=== PATIENT | female | born 1965 | race Caucasian/White ===

== ENCOUNTER 2019-03-29 20:46 | Inpatient (IN) | payer MEDICAID ==
[~2019-03-29] VITALS: Ht 180.3 cm; Wt 94.8 kg
[2019-03-29 20:53] VITALS: BP_SYST 132
--- NOTE | 2019-03-29 20:59 | NUR ---
Placed in room 01 . Placed on night monitor, blood pressure machine and pulse oximeter. To gown for exam. Side rails up.
--- NOTE | 2019-03-29 21:00 | NUR ---
Pt brought in by daughter. Pt awake, alert, oriented x2. Pt mildly confused. Daughter states Last known well time was more than 6 hours ago. Daughter states that patient was laying on the floor, confused and lethargic, which prompted ED visit. Pt denies chest pain, nausea, vomiting, diarrhea, shortness of breath. 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 Pt placed in ED bed 1 with no acute signs of distress at this time. ED team bedside assisting in evaluation and care of patient. Vital signs stable.
--- NOTE | 2019-03-29 21:00 | NUR ---
ER Dr. Niño at bedside examining patient.
--- NOTE | 2019-03-29 21:05 | NUR ---
# 20 gauge angiocath placed to LAC. Use of asceptic technique. Opsite placed over site. Blood return noted. Blood for lab drawn from site. Flushed with 10 cc of normal saline. No evidence of infiltration noted. Patient tolerated well.
--- NOTE | 2019-03-29 21:10 | NUR ---
Pt to CT via stretcher on raymond mill operator accompanied by myself.
--- NOTE | 2019-03-29 21:18 | NUR ---
Pt returns from CT, placed on surveillance system monitor. Daughter at bedside, states their is improvent to her cognition and speech since onset of symptoms. Improvement noted in facial aysmmetry, pt speech more clear. No changes to neuromuscular activity.
[2019-03-29 21:50] LABS: BASOPHILS % (AUTO) 0.5 % (0.0-2.0); EOSINOPHILS # (AUTO) 0.2 K/uL (0.0-0.4); EOSINOPHILS % (AUTO) 2.5 % (0.0-4.0); HEMATOCRIT 35.4 % (36-48); HEMOGLOBIN 11.6 g/dL (12.0-16.0); LYMPHOCYTES # (AUTO) 1.7 K/uL (1.0-5.5); LYMPHOCYTES % (AUTO) 27.4 % (20.5-51.5); MEAN CORPUSCULAR HEMOGLOBIN 25 pg (27-31); MEAN CORPUSCULAR HGB CONC 33 % (32-36); MEAN CORPUSCULAR VOLUME 77 fL (79.0-98.0); MONOCYTES # (AUTO) 0.7 K/uL (0.0-1.0); MONOCYTES % (AUTO) 11.9 % (1.7-9.3); NEUTROPHILS # (AUTO) 3.5 K/uL (1.8-7.7); NEUTROPHILS % (AUTO) 57.7 % (40.0-70.0); PLATELET COUNT (AUTO) 362 K/uL (130-430); RED BLOOD CELL COUNT(AUTO) 4.61 MIL/uL (4.2-6.2); RED CELL DISTRIBUTION WIDTH 17.1 % (9.0-15.0); WHITE BLOOD COUNT (AUTO) 6.1 K/uL (4.8-10.8)
--- NOTE | 2019-03-29 22:03 | NUR ---
Pt resting in ED bed comfortably. Daughter bedside.
[2019-03-29 22:05] LABS: ANION GAP 4 (5-15); CALCIUM 8.7 mg/dL (8.4-11.0); CHLORIDE 101 mmol/L (98-107); CREATININE 0.69 mg/dL (0.55-1.30); GLUCOSE 100 mg/dL (70-99); POTASSIUM 3.9 mmol/L (3.5-5.1); SODIUM SERUM 136 mmol/L (136-145); UREA NITROGEN, BLOOD 7 mg/dL (8-21)
[2019-03-29 22:07] LABS: GFR AFRICAN AMERICAN 114 mL/min (>90)
[2019-03-29 22:13] LABS: PROTHROMBIN TIME 10.4 SECS (9.5-12.5)
[2019-03-29 22:22] LABS: ALANINE AMINOTRANSFERASE 19 U/L (12-78); ALBUMIN 3.5 g/dL (3.4-4.8); ASPARTATE AMINOTRANSFERASE 21 U/L (10-37); THYROID STIMULATING HORMONE 1.63 uIu/mL (0.36-3.74); TOTAL BILIRUBIN 0.2 mg/dL (0.0-1.0)
[2019-03-29 22:24] LABS: BILIRUBIN,URINE NEGATIVE (NEGATIVE); BLOOD, URINE NEGATIVE (NEGATIVE); CLARITY/URINE CLEAR (CLEAR); COLOR,URINE YELLOW (YELLOW); GLUCOSE,URINE NEGATIVE (NEGATIVE); KETONES,URINE NEGATIVE (NEGATIVE); LEUKOCYTE ESTERASE ,URINE NEGATIVE (NEGATIVE); NITRITE, URINE NEGATIVE (NEGATIVE); PROTEIN URINE NEGATIVE (NEGATIVE); UROBILINOGEN,URINE 0.2 (0.2-1.0)
[2019-03-29 22:35] LABS: ACETAMINOPHEN < 1 ug/mL (1-30); ALCOHOL, BLOOD < 3 mg/dL (<10)
[2019-03-29 22:46] LABS: BARBITURATE, URINE NEGATIVE (NEG <=200); BENZODIAZEPINE, URINE POSITIVE (NEG <=150); CANNABINOID, URINE NEGATIVE (NEG <=50); COCAINE, URINE NEGATIVE (NEG <=150); METHAMPHETAMINES SCREEN,URINE NEGATIVE (NEG <=500); OPIATE, URINE POSITIVE (NEG <=100); PHENCYCLIDINE SCREEN,URINE NEGATIVE (NEG <=25); UR TRICYCLIC ANTIDEPRESSANTS POSITIVE (NEG <=300); URINE AMPHETAMINE NEGATIVE (NEG <=500); URINE METHADONE NEGATIVE (NEG <=200); URINE OXYCODONE SCREEN NEGATIVE (NEG <=100); URINE PROPOXYPHENE SCREEN NEGATIVE (NEG <=300)
--- NOTE | 2019-03-29 23:10 | NUR ---
Pt soiled self. Pt assisted to be changed, bedsheets, gown changed. Pt cleaned and skin inspected with no significant findings
--- NOTE | 2019-03-30 00:12 | NUR ---
Pt resting in ED bed comfortably, no acute distress noted at this time.
--- NOTE | 2019-03-30 01:03 | NUR ---
Patient will be admitted to care of Dr. Hill. Admitted to telemetry unit. Will go to room 102A. Belongings list completed. Summary report printed. Report will be given at bedside.
[2019-03-30] MEDS: D5LR 1,000 ML IV SCH ×3 (01:07→21:39)
--- NOTE | 2019-03-30 01:11 | NUR ---
Transfer to telemetry via ACLS protocol. Licensed nurse present. IV's present no signs or symptoms of infiltration.
--- NOTE | 2019-03-30 01:45 | NUR ---
ADMISSION NOTE Received patient from ER via [facility], received report from XAVIER dietrich. Patient admitted with diagnosis of OVERDOSE. Patient oriented to hospital routine, call light, toileting and safety-patient verbalized understanding.
[2019-03-30 01:50] VITALS: BP_SYST 129
--- NOTE | 2019-03-30 02:05 | NUR ---
Patient admitted to room 102a. Alert Oriented x4. No acute distress noted. Skin warm dry and intact. Vital signs 96.9 120/80 99% 72. Weight 95.3
[2019-03-30] MEDS ORDERED: FLU VACC QS2019-20 36MOS UP/PF 60 MCG/0.5 ML SYRINGE I.M. PRN (02:30)
--- NOTE | 2019-03-30 03:13 | NUR ---
Consultation Paged Reason for Consultation: overdose Was consult called: Y Person who was notified: Monika Consulting Physician: Dr. Velásquez Tractor Operator Battery Ordering Physician: Dr. Hill
[2019-03-30 07:18] LABS: BASOPHILS # (AUTO) 0.1 K/uL (0.0-0.2); BASOPHILS % (AUTO) 1.7 % (0.0-2.0); EOSINOPHILS # (AUTO) 0.3 K/uL (0.0-0.4); EOSINOPHILS % (AUTO) 4.8 % (0.0-4.0); HEMATOCRIT 33.7 % (36-48); LYMPHOCYTES # (AUTO) 2.5 K/uL (1.0-5.5); LYMPHOCYTES % (AUTO) 40.4 % (20.5-51.5); MEAN CORPUSCULAR HEMOGLOBIN 26 pg (27-31); MEAN CORPUSCULAR HGB CONC 33 % (32-36); MEAN CORPUSCULAR VOLUME 78 fL (79.0-98.0); MONOCYTES # (AUTO) 0.9 K/uL (0.0-1.0); NEUTROPHILS # (AUTO) 2.4 K/uL (1.8-7.7); NEUTROPHILS % (AUTO) 39.1 % (40.0-70.0); PLATELET COUNT (AUTO) 303 K/uL (130-430); RED CELL DISTRIBUTION WIDTH 16.9 % (9.0-15.0); WHITE BLOOD COUNT (AUTO) 6.3 K/uL (4.8-10.8)
--- NOTE | 2019-03-30 07:56 | NUR ---
SBAR REPORT AT THE BEDSIDE. PATIENT AAOX 4. BREATHING EVEN AND UNLABORED. ABDOMEN SOFT AND NON DISTENDED. HAS IV ACCESS ON THE RT AC #20. WITH IV FLUIDS D5LR 100CC/HR INFUSING ON WELL. VITAL SIGNS STABLE. AFEBRILE. BED LOW POSITION, ALARMED AND LOCKED. CALL LIGHTS WITHIN REACH.
[2019-03-30 08:01] LABS: ALBUMIN 2.8 g/dL (3.4-4.8); CALCIUM 8.8 mg/dL (8.4-11.0); CREATININE 0.53 mg/dL (0.55-1.30); PHOSPHORUS 3.9 mg/dL (2.7-4.5); POTASSIUM 4.1 mmol/L (3.5-5.1); TOTAL BILIRUBIN 0.3 mg/dL (0.0-1.0)
[2019-03-30 08:03] VITALS: BP_SYST 111
--- NOTE | 2019-03-30 09:00 | NUR ---
no due medication given at this time. awaiting for dr villafana to come.
--- NOTE | 2019-03-30 10:30 | NUR ---
physical therapy came
[2019-03-30] MEDS ORDERED: HYDROcodone/ACETAMIN 5-325 MG TAB (NORCO/ VICODIN) PO PRN (10:45)
[2019-03-30] MEDS ORDERED: ONDANSETRON HCL 4 MG/2 ML VIAL IVP PRN (10:45)
[2019-03-30] MEDS ORDERED: HYDR12.55 PO (11:41)
[2019-03-30] MEDS ORDERED: VIS50 PO (11:41)
[2019-03-30] MEDS ORDERED: FLUT16SP16 NS (11:41)
[2019-03-30] MEDS ORDERED: AMIT50TA3 PO (11:41)
[2019-03-30] MEDS ORDERED: [UNRECOGNIZED DRUG - CODE] PO (11:41)
[2019-03-30] MEDS ORDERED: GABA-776 PO (11:41)
[2019-03-30] MEDS ORDERED: MONT10TA25 PO (11:41)
[2019-03-30] MEDS ORDERED: RANI50VI3 IJ (11:41)
[2019-03-30] MEDS ORDERED: CYCL-10 PO (11:41)
[2019-03-30 11:49] VITALS: BP_SYST 111
--- NOTE | 2019-03-30 12:00 | NUR ---
had eaten lunch assists on adls.
[2019-03-30 12:35] VITALS: BP_SYST 110
--- NOTE | 2019-03-30 13:47 | NUR ---
Head Animal Trainer: Meet with pt. and conduct a DCPA and Social work interview [employer]ING [employer] met with pt. bedside. Pt. stated she was in a lot of pain. WO[employer] stated she will let her Rn, Jasmina know once her interview is done. Pt stated she resides at [address] in [place]. She lives there with one of her sons and her . Pt. denies overdosing. She stated she takes morphine 3x per day, stating, "it is highly regulated", "Its for a back fracture of L1 and L6 and fusion of L2, L3 and L4. She stated she has other health issues and currently she is experiencing digestive problems. She stated she took her medication at the same time, her found her on the floor asleep,but that she was not trying to overdoes. When asked, pt. stated she has a lot to live for. She has her family and two young grandchildren and she would never harm herself. She answered WO[employer]'s questions stating at different times in her life, she has been Dx. with depression as she has suffered a lot of loss and pain. Her brother, father and grandmother have all , which has affected her. With her depression Dx. she stated she was prescribed medication, but did not ever take it as she did not like the weight gain and felt it did not help her even after trying different types of depression medication. Pt. added she saw a therapist at her PCP, Dr. Karlie Marquez's request. Pt. stated she saw a therapist weekly for about 4 months. WO[employer] wanted to share some resources with pt. such as mental health, but pt. denied it stating she knows how to access mental health services, but thanked the [employer]. Pt did not feel she had any dependency on pain medication stating it is highly regulated. [employer]ER told pt. how she could reach her if she had any questions and left a card with her. Pt. thanked [employer]ER upon exit. Addendum: 03/30/19 at 1409 by Abbey MACKEY Head Animal Trainer: dylan MACKEY requested address correction for this pt. [employer]ER attempted to share some resources with pt. but pt. refused stating she knows how to access mental health services if she needs them. NARENDRA will remain available as needed.
[2019-03-30 16:25] VITALS: BP_SYST 112
[2019-03-30] MEDS: HYDROcodone/ACETAMIN 10-325 MG TAB PO PRN (16:30)
[2019-03-30] MEDS ORDERED: CYCLOBENZAPRINE HCL 10 MG TABLET (FLEXERIL) PO ONE (17:00)
[2019-03-30] MEDS ORDERED: FAMOTIDINE 20 MG TABLET PO ONE (17:00)
--- NOTE | 2019-03-30 17:00 | NUR ---
dr villafana came and medication reconciliation done.
[2019-03-30] MEDS ORDERED: GABAPENTIN 300 MG CAPSULE PO ONE (17:30)
--- NOTE | 2019-03-30 17:45 | NUR ---
respiratory therapist came and instructed regarding incentive spirometry
--- NOTE | 2019-03-30 18:26 | NUR ---
due medication given at this time.
--- NOTE | 2019-03-30 19:35 | NUR ---
endorsed to incoming nurse Carrie PARK
[2019-03-30 21:00] VITALS: BP_SYST 110
[2019-03-30] MEDS ORDERED: AMITRIPTYLINE HCL 25 MG TABLET (ELAVIL) PO SCH (21:00)
[2019-03-30] MEDS ORDERED: MORPHINE SULFATE 30 MG TABLET.SA PO SCH (21:00)
[2019-03-30] MEDS: GABAPENTIN 300 MG CAPSULE PO SCH (21:38)
[2019-03-30] MEDS: MORPHINE SULFATE 30 MG TABLET.SA PO SCH (21:38)
[2019-03-31 00:23] VITALS: BP_SYST 113
[2019-03-31] MEDS: HYDROcodone/ACETAMIN 10-325 MG TAB PO PRN (03:35)
[2019-03-31 08:00] VITALS: BP_SYST 109
--- NOTE | 2019-03-31 08:00 | NUR ---
Note Pt sitting up in bed eating her breakfast. No SOB/resp distress or severe pain noted at this time. IV in left AC intact and patent infusing IVF's well at this time. No needs noted at this time. Call light within reach.
[2019-03-31] MEDS: MORPHINE SULFATE 30 MG TABLET.SA PO SCH (08:47)
[2019-03-31] MEDS: GABAPENTIN 300 MG CAPSULE PO SCH ×2 (08:47→13:00)
[2019-03-31] MEDS ORDERED: HYDROCHLOROTHIAZIDE 12.5 MG CAPSULE (HCTZ) PO SCH (09:00)
[2019-03-31] MEDS ORDERED: FAMOTIDINE 20 MG TABLET PO SCH (09:00)
[2019-03-31] MEDS ORDERED: CYCLOBENZAPRINE HCL 10 MG TABLET (FLEXERIL) PO SCH (09:00)
[2019-03-31] MEDS ORDERED: MONTELUKAST 10 MG TABLET PO SCH (09:00)
[2019-03-31 11:21] VITALS: BP_SYST 113
--- NOTE | 2019-03-31 12:00 | NUR ---
Note Pt ambulates to restroom couple of times with IV pole and steady gait. No needs noted at this time.
--- NOTE | 2019-03-31 13:15 | NUR ---
Note Dr Hill in the room answering pt's questions/concerns and verbal discharge instructions given at this time. IVF's were saline locked.
--- NOTE | 2019-03-31 14:30 | NUR ---
Note Pt's IV was dc'd - site benign. No swelling/bleeding/drainage/tenderness at site noted at this time. Pt dressed in street clothes. Pt packed all her belongings and checked side table/drawers for belongings. Pt given discharge instructions and questions/concerns were answered at this time. Pt off the floor with all her belongings and discharge paperwork with by her side to private car. Pt stable. No SOB or severe pain/discomfort was noted at this time.
== END 2019-03-31 14:30 | disposition home or self-care (01) | DRG 812 ==
LOC: SED 20:46 → STU 23:37 → SMU 03-30 16:36
PROVIDERS: ADMIT Internal Medicine; ATTEND Internal Medicine
DX: T40.2X1A Poisoning by other opioids, accidental (unintentional), initial encounter (principal); G92 Toxic encephalopathy; F32.9 Major depressive disorder, single episode, unspecified; G51.0 Bell's palsy; M79.7 Fibromyalgia; G89.4 Chronic pain syndrome; F41.1 Generalized anxiety disorder; Z98.84 Bariatric surgery status; Y92.89 Other specified places as the place of occurrence of the external cause
CPT/HCPCS: 36415; 36600; 70450-TC; 71045; 80053; 80307; 81003; 82140-TC; 82550-TC; 82803-TC; 83735-TC; 84100-TC; 84439; 84443-TC; 84484; 85025; 85610-TC; 85730-TC; 93005; 94760; 99285; G0378; G0480; G0481; G0482; J2274; J7120